=== PATIENT | female | born 1995 | race Caucasian/White ===

== ENCOUNTER 2023-11-23 23:23 | Emergency (ER) | payer SELFPAY ==
[2023-11-23] MEDS: ONDANSETRON HCL 4MG/2ML INJ IV NR (23:45)
[2023-11-23] MEDS ORDERED: ONDANSETRON HCL 4MG/2ML INJ IV STA (23:49)
[2023-11-24 00:10] LABS: BASOPHILS % 0.2 % (0.0-2.0); EOSINOPHILS % 0.3 % (0.0-5.0); HEMATOCRIT. 41.3 % (36.0-48.0); HEMOGLOBIN. 13.8 g/dL (12.0-16.0); LYMPHOCYTES % 12.8 % (20.0-50.0); MEAN CORPUSCULAR HEMOGLOBIN 30.7 pg (28.0-32.0); MEAN CORPUSCULAR HGB CONC 33.3 g/dL (31.0-37.0); MEAN CORPUSCULAR VOLUME 92.2 fL (81.0-99.0); MONOCYTES % 6.2 % (2.0-8.0); NEUTROPHILS % 80.5 % (40.0-76.0); PLATELET 352 x1000/uL (130-400); RED BLOOD CELL COUNT 4.48 mill/uL (4.2-5.4); RED CELL DISTRIBUTION WIDTH 12.7 % (11.6-14.6); WHITE BLOOD COUNT 13.3 x1000/uL (4.5-11.0)
[2023-11-24 00:16] LABS: CHLORIDE 106 mEq/L (98-107); POTASSIUM 3.4 mEq/L (3.5-5.1); SODIUM 139 mEq/L (136-145)
[2023-11-24 00:17] LABS: CALCIUM 9.2 mg/dL (8.7-10.4); CARBON DIOXIDE 23 mEq/L (21-32)
[2023-11-24 00:22] LABS: CREATININE 0.8 mg/dL (0.6-1.0); GLUCOSE 155 mg/dL (70-105); UREA NITROGEN BLOOD 7 mg/dL (9-23)
[2023-11-24 00:24] LABS: ETHANOL BLOOD < 10 mg/dL (<10)
[2023-11-24] MEDS: SODIUM CHLORIDE 0.9% 1,000 ML IV ONE (00:56)
[2023-11-24 02:14] VITALS: BP 104/63; PULSE 101; RESP 18; TEMP 98.2
== END 2023-11-24 05:05 | disposition left against medical advice (07) ==
LOC: ER 23:41 → EDBEDREQ 11-24 02:49 → EDBEDREQTM 11-24 02:49 → ER 11-24 05:05
DX: R11.2 Nausea with vomiting, unspecified (principal); F12.90 Cannabis use, unspecified, uncomplicated
CPT/HCPCS: 36415; 96374; 99283; 80048; 80320; 85025; J2405; J7030; G0480